=== PATIENT | male | born 1955 | race Caucasian/White ===

== ENCOUNTER → 2023-12-23 10:28 | Outpatient (REF) | payer MEDICARE, OTHER, SELFPAY | LOC: RAD 10:28 | PROVIDERS: ATTENDING PHYSICIAN Otolaryngology Facial Plastic Surgery; FAMILY PHYSICIAN Internal Medicine | DX: J33.0 Polyp of nasal cavity (principal); J32.2 Chronic ethmoidal sinusitis | CPT/HCPCS: 70486 ==